=== PATIENT | female | born 1940 | race Caucasian/White ===

== ENCOUNTER 2017-02-05 04:44 | Emergency (ER) | payer MEDICARE, BC ==
[~2017-02-05] VITALS: Ht 165.1 cm; Wt 61.7 kg
== END 2017-02-05 06:55 | disposition short-term general hospital (02) ==
LOC: ER 04:44
DX: K92.2 Gastrointestinal hemorrhage, unspecified (principal); D64.9 Anemia, unspecified; I10 Essential (primary) hypertension; F32.9 Major depressive disorder, single episode, unspecified

== ENCOUNTER 2017-09-04 18:23 | Emergency (ER) | payer MEDICARE, BC ==
[~2017-09-04] VITALS: Ht 165.1 cm; Wt 59.0 kg
== END 2017-09-04 19:36 | disposition short-term general hospital (02) ==
LOC: ER 18:23
DX: S72.141A Displaced intertrochanteric fracture of right femur, initial encounter for closed fracture (principal); K21.9 Gastro-esophageal reflux disease without esophagitis; I10 Essential (primary) hypertension; E87.6 Hypokalemia; E03.9 Hypothyroidism, unspecified; G20 Parkinson's disease; E78.5 Hyperlipidemia, unspecified; F17.210 Nicotine dependence, cigarettes, uncomplicated; Z88.2 Allergy status to sulfonamides; Z79.82 Long term (current) use of aspirin; Z79.899 Other long term (current) drug therapy; Z90.49 Acquired absence of other specified parts of digestive tract; Z90.710 Acquired absence of both cervix and uterus; Z90.89 Acquired absence of other organs; W18.39XA Other fall on same level, initial encounter
CPT/HCPCS: J2270; J2405